=== PATIENT | male | born 1940 | race Caucasian/White ===

== ENCOUNTER 2016-11-01 12:07 | Outpatient (CLI) | payer MEDICARE, OTHER | END 2016-11-01 12:08 | disposition critical access hospital (66) | DX: R25.2 Cramp and spasm (principal); R25.1 Tremor, unspecified | CPT/HCPCS: A0425; A0429 ==

== ENCOUNTER 2016-11-01 12:20 | Inpatient (IN) | payer MEDICARE, OTHER ==
[2016-11-01] MEDS ORDERED: SODIUM CHLORIDE 0.9% 1,000 ML IV ONE ×2 (12:27)
--- NOTE | 2016-11-01 12:32 | ED Physician Documentation ---
History of Present Illness - Stated complaint Stated Complaint: LEG CRAMPING - Chief complaint Chief Complaint: Neuro - History obtained from History obtained from: Patient, EMS - History of Present Illness Timing: Today Pain level max: 8 Pain level now: 0 Improved by: time Worsened by: nothing - Additonal information Additional information: Patient is a 76-year-old male who presents to the emergency department after developing a leg cramp that made him lie down on the ground earlier today and was unable to get up. No injury. Currently experiencing no pain. 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 Several lung tumors. He spends most of his time in [place], but lives here during the summer. Sees Dr. Al, oncology here. Denies any recent illnesses. Denies any fevers, vomiting, cough. States he is currently feeling well. arrived and states that she first noticed the tremor today. He is stepping off Keppra and didn't take his keppra this am. Review of Systems Constitutional: denies: Fever, Chills Ears: denies: Ear pain Nose: denies: Rhinorrhea / runny nose, Congestion Throat: denies: Sore throat Cardiac: denies: Chest pain / pressure Respiratory: denies: Cough GI: denies: Nausea, Vomiting, Diarrhea Skin: denies: Rash Musculoskeletal: denies: Neck pain, Back pain Neurologic: reports: Other (upper left extremity tremor for several weeks per pt.). denies: Focal weakness, Confused, Altered mental status, Headache PD PAST MEDICAL HISTORY - Past Medical History Cardiovascular: Hypertension, High cholesterol Respiratory: None Neuro: None Endocrine/Autoimmune: None GI: GERD : Benign prostate hypertrophy HEENT: None Psych: None Musculoskeletal: None Derm: None - Past Surgical History Past Surgical History: Yes General: EGD, Appendectomy, Colonoscopy HEENT: Tonsil/Adenoidectomy - Present Medications Home Medications: Ambulatory Orders Medication Instructions Recorded Confirmed Aspirin 81 mg PO QPM 11/02/12 11/01/16 Lisinopril/Hydrochlorothiazide 1 tab PO DAILY 11/02/12 11/01/16 [Lisinopril-Hctz 10-12.5 mg Tab] Omeprazole [PriLOSEC] 20 mg PO 1630 11/03/12 11/01/16 Amlodipine Besylate 5 mg PO DAILY 10/31/16 11/01/16 Atorvastatin [Lipitor] 10 mg PO QPM 10/31/16 11/01/16 Dexamethasone 2 mg PO Q48H 10/31/16 11/01/16 Levetiracetam [Levetiracetam] 500 mg PO BID 11/01/16 11/01/16 - Allergies Allergies/Adverse Reactions: Allergies Allergy/AdvReac Type Severity Reaction Status Date / Time No Known Drug Allergies Allergy Verified 11/02/12 21:05 - Social History Does the pt smoke?: No Smoking Status: Never smoker Does the pt drink ETOH?: Yes Does the pt have substance abuse?: No - Immunizations Immunizations are current?: Yes - POLST Patient has POLST: Yes POLST Status: Full Code PD ED PE NORMAL - Vitals Vital signs reviewed: Yes - General General: Alert and oriented X 3, No acute distress - HEENT HEENT: PERRL, Moist mucous membranes - Neck Neck: Supple, no meningeal sign - Cardiac Cardiac: RRR, Strong equal pulses - Respiratory Respiratory: No respiratory distress, Clear bilaterally - Abdomen Abdomen: Soft, Non tender - Back Back: No spinal TTP - Derm Derm: Warm and dry, No rash - Extremities Extremities: Other (LUE resting tremor) - Neuro Neuro: Alert and oriented X 3 - Psych Psych: Normal mood, Normal affect Results - Vitals Vitals: Vital Signs - 24 hr 11/01/16 11/01/16 11/01/16 12:28 13:15 14:29 Temperature 38.1 C H 37.0 C 37.5 C Heart Rate 107 H 78 Respiratory 21 20 Rate Blood Pressure 151/80 H 134/70 H O2 Saturation 98 93 11/01/16 11/01/16 11/01/16 14:32 15:00 15:30 Temperature Heart Rate 80 81 79 Respiratory 20 20 Rate Blood Pressure 137/65 H 147/72 H 145/78 H O2 Saturation 93 94 94 11/01/16 16:00 Temperature Heart Rate 88 Respiratory 22 Rate Blood Pressure 126/85 H O2 Saturation 90 L Oxygen O2 Source Room air - Labs Labs: Laboratory Tests 11/01/16 11/01/16 11/01/16 12:50 12:50 13:55 WBC 8.1 RBC 4.36 L Hgb 13.1 L Hct 38.5 L MCV 88.2 MCH 30.2 MCHC 34.2 RDW 15.2 H Plt Count 214 MPV 8.0 Neut # 6.2 Lymph # 1.1 L [place] # 0.8 Eos # 0.0 Baso # 0.1 Absolute Nucleated RBC 0.00 Nucleated RBCs 0.0 Manual Slide Review Indicated RBC Morph Micro Appear 2+ ANISOCYTOSIS Sodium 140 Potassium 4.0 Chloride 102 Carbon Dioxide 29 Anion Gap 9.0 BUN 34 H Creatinine 0.9 Estimated GFR (MDRD) 82 L Glucose 114 H Calcium 9.1 Phosphorus 2.6 Magnesium 1.6 L Total Bilirubin 0.5 AST 22 ALT 31 Alkaline Phosphatase 58 Total Protein 6.1 L Albumin 3.1 L Globulin 3.0 Albumin/Globulin Ratio 1.0 Lipase 35 Urine Color YELLOW Urine Clarity CLEAR Urine pH 7.5 Ur Specific [place] 1.015 Urine Protein NEGATIVE Urine Glucose (UA) NEGATIVE Urine Ketones NEGATIVE Urine Occult Blood NEGATIVE Urine Nitrite NEGATIVE Urine Bilirubin NEGATIVE Urine Urobilinogen 0.2 (NORMAL) Ur Leukocyte Esterase NEGATIVE Ur Microscopic Review NOT INDICATED Urine Culture Comments NOT INDICATED - Rads (name of study) head CT Radiology: Prelim report reviewed, EMP read contemporaneously, See rad report ( Right parietal lobe lesion, adjacent to a craniotomy jazzmine hole. This likely corresponds to the brain metastasis reported in clinical history. However, this lesion would be best characterized using comparison to previous head CT or brain MRI. Further workup would include comparison and may include contrast enhanced CT or MRI to characterize further. ) cxr Radiology: Prelim report reviewed, EMP read contemporaneously, See rad report ( Multiple bilateral pulmonary nodules which given the history of malignancy are consistent with pulmonary metastases. Comparison with previous imaging of the chest would be useful to evaluate the chronicity of these findings. ) PD MEDICAL DECISION MAKING - ED course Complexity details: reviewed results, re-evaluated patient, considered differential, d/w patient, d/w family, d/w healthcare network pricing consultant ED course: 1500 - Call placed to Dr. Lombardi (oncology). 1610 - Dr. Kowalski - Recommend start on dexamethasone, 8 mg twice daily. Also recommends placing observation for an MRI. Recommends restarting the Keppra 250 mg p.o. daily. Patient is well-appearing, nontoxic. He is having intermittent tremors to the bilateral lower extremities, worse on the left as well as left arm. Does have intermittent confusion. Possible partial complex seizures? No generalized tonic-clonic seizures. We will restart him on dexamethasone. Loaded with IV Keppra. Will get an MRI in the morning. Did initially have an elevated temperature here, and they remaining temperatures in the emergency department were normal and a normal white blood cell count. No neck stiffness or pain. No headache. Will hold LP at this time after discussion with oncology and hospitalist. Departure - Departure Disposition: 66 [facility] DC/Xfer Clinical Impression: Coarse tremors, Brain metastases Altered mental status Qualifiers: Altered mental status type: unspecified Qualified Code(s): R41.82 - Altered mental status, unspecified Condition: Stable Discharge Date/Time: 11/01/16 17:25
[2016-11-01 13:00] LABS: BASOPHILS # (AUTO) 0.1 10^3/uL (0.0-0.1); BASOPHILS % (AUTO) 0.6 %; EOSINOPHILS % (AUTO) 0.1 %; HCT - HEMATOCRIT 38.5 % (42.0-52.0); HGB - HEMOGLOBIN 13.1 g/dL (14.0-18.0); LYMPHOCYTES # (AUTO) 1.1 10^3/uL (1.5-3.5); LYMPHOCYTES % (AUTO) 13.1 %; MEAN CORPUSCULAR HEMOGLOBIN 30.2 pg (27.0-31.0); MEAN CORPUSCULAR HGB CONC 34.2 g/dL (32.0-36.0); MEAN CORPUSCULAR VOLUME 88.2 fL (80.0-94.0); MONOCYTES # (AUTO) 0.8 10^3/uL (0.0-1.0); MONOCYTES % (AUTO) 9.4 %; NEUTROPHILS # (AUTO) 6.2 10^3/uL (1.5-6.6); NEUTROPHILS % (AUTO) 76.8 %; RED BLOOD COUNT 4.36 10^6/uL (4.70-6.10); RED CELL DISTRIBUTION WIDTH 15.2 % (12.0-15.0); UNCORRECTED WHITE BLOOD COUNT 8.1 x10^3/uL; WHITE BLOOD COUNT 8.1 x10^3/uL (4.8-10.8)
[2016-11-01 13:25] LABS: BILIRUBIN,TOTAL 0.5 mg/dL (0.2-1.0); CALCIUM 9.1 mg/dL (8.5-10.3); CREATININE 0.9 mg/dL (0.6-1.2); MAGNESIUM 1.6 mg/dL (1.7-2.8); PHOSPHORUS 2.6 mg/dL (2.5-4.6); TOTAL PROTEIN 6.1 g/dL (6.7-8.2)
[2016-11-01] MEDS ORDERED: LIDOCAINE 2% URO-JET 5 ML SYRINGE UR ONE (13:38)
[2016-11-01 14:13] LABS: BILIRUBIN,URINE NEGATIVE (NEGATIVE); PH,URINE 7.5 PH (5.0-7.5); UA CHARGE (STRIP ONLY) YES; UR CULTURE IF IND NOT INDICATED
--- NOTE | 2016-11-01 14:43 | CT Preliminary Report ---
Exam: CT Head W/O IMPRESSION: 1. Right parietal lobe lesion, adjacent to a craniotomy jazzmine hole. This likely corresponds to the bra in metastasis reported in clinical history. However, this lesion would be best characterized using co mparison to previous head CT or brain MRI. Further workup would include comparison and may include co ntrast enhanced CT or MRI to characterize further. [facility] SITE ID: [id number]
--- NOTE | 2016-11-01 14:46 | CT Report ---
EXAM: CT HEAD EXAM DATE: 11/01/2016 02:19 PM. CLINICAL HISTORY: Fever, ALOC, h/o brain mets. COMPARISON: None. TECHNIQUE: Multiaxial CT images were obtained from the foramen magnum to the vertex. IV contrast: Non e. Reformats: Coronal. In accordance with CT protocol optimization, one or more of the following dose reduction techniques w ere utilized for this exam: automated exposure control, adjustment of mA and/or KV based on patient s ize, or use of iterative reconstructive technique. FINDINGS: Parenchyma: There is a heterogeneous lesion in the right parietal lobe. The lesion is predominantly h ypodense. Medially and anteriorly, there is a rim of hyperdensity. This lesion measures 3.4 x 3.2 x 4 .1 cm in size. There is a separate area of hyperdensity located laterally. This lesion is adjacent to a craniotomy defect in the lateral right calvarium. Given the presence of high attenuation, an area of gyriform hemorrhage is not excluded, more likely representing tumor calcification or other high de nsity tumor. No midline shift. Basal cisterns are patent. Extraaxial Spaces: No abnormal subdural or epidural fluid collections. Ventricles: Normal in size and position. Sinuses: Imaged paranasal sinuses, orbits, and mastoids show no significant abnormality. Bones: No evidence of fracture or calvarial defect. Other: None. IMPRESSION: 1. Right parietal lobe lesion, adjacent to a craniotomy jazzmine hole. This likely corresponds to the bra in metastasis reported in clinical history. However, this lesion would be best characterized using co mparison to previous head CT or brain MRI. Further workup would include comparison and may include co ntrast enhanced CT or MRI to characterize further. [facility] Referring Provider Line: [phone] SITE ID: [id number]
--- NOTE | 2016-11-01 15:05 | XRAY Preliminary Report ---
Exam: XR Chest 1 View IMPRESSION: 1. Multiple bilateral pulmonary nodules which given the history of malignancy are consistent with pul monary metastases. Comparison with previous imaging of the chest would be useful to evaluate the costume cutter nicity of these findings. [facility] SITE ID: [id number]
--- NOTE | 2016-11-01 15:07 | XRAY Report ---
EXAM: CHEST RADIOGRAPHY EXAM DATE: 11/01/2016 02:23 PM. CLINICAL HISTORY: Fever, ALOC. History of metastatic disease. COMPARISON: None. TECHNIQUE: 1 view. FINDINGS: Lungs/Pleura: There are multiple bilateral pulmonary nodules. Nodule at the right lung base measures 2.5 cm in diameter. There are bilateral nodules most likely metastatic disease. Mediastinum: Heart size within normal limits. Trachea is midline. Other: None. IMPRESSION: 1. Multiple bilateral pulmonary nodules which given the history of malignancy are consistent with pul monary metastases. Comparison with previous imaging of the chest would be useful to evaluate the field liability generalist nicity of these findings. [facility] Referring Provider Line: [phone] SITE ID: [id number]
[2016-11-01] MEDS ORDERED: levETIRAcetam 250 MG TABLET ONE (16:04)
[2016-11-01] MEDS ORDERED: DEXAMETHASONE 10 MG/ML VIAL IVP STA (16:10)
[2016-11-01] MEDS ORDERED: levETIRAcetam 250 MG TABLET PO STA (16:11)
[2016-11-01] MEDS ORDERED: levETIRAcetam INJ 1,000 MG in SODIUM CHLORIDE 0.9% 100ML 100 ML IV STA (16:32)
[2016-11-01] MEDS ORDERED: DEXAMETHASONE 10 MG/ML VIAL ONE (16:39)
[2016-11-01] MEDS ORDERED: ACETAMINOPHEN 325 MG TABLET PO PRN (16:43)
[2016-11-01] MEDS ORDERED: HYDROcod/ACETAM 5/325 MG TABLET PO PRN (16:43)
[2016-11-01] MEDS ORDERED: SODIUM CHLORIDE FLUSH 0.9% 10 ML SYRINGE IVP PRN (16:43)
[2016-11-01] MEDS: PANTOPRAZOLE 40 MG TABLET PO SCH (17:53)
--- NOTE | 2016-11-01 18:46 | HISTORY & PHYSICAL EXAMINATION ---
DATE OF ADMISSION: 11/01/2016 PRIMARY CARE PROVIDER: Mikie Cheung MD. CHIEF COMPLAINT: Leg cramping and spasms. IDENTIFYING INFORMATION: The patient is the primary source of history. The patient does have his brot her, Bill, [id number] Alexandro, and his present. The patient appears cogent although sometimes appears to answer questions with answers which are tangential to the question. Unclear if he does not hear the questions or if an intermittent cognitive deficit. The patient's history is augmented by th e patient's and the personal record review, as well as the data collected during this visit. In addition, the patient's examination is used in evaluation of this person and preparation of this docu ment. HISTORY OF PRESENT ILLNESS: The patient woke up this morning, was having tremors in his left leg whic h was unusual. He does have some in his left arm and he had some more shaking of his body and a tremo r in his voice. The patient said that this has increased over the last week. The patient does have metastatic melanoma both to the lung and brain. He has been having chemotherapy and is to have a new chemotherapy agent. The patient had a biopsy of the brain to have an accurate d iagnosis. He was therefore put on antiseizure medicine, Keppra, back in August and has been on it sinc e then. He has been tapered off recently from 3 pills a day to 2 pills a day to 1 pill a day to half a pill a day and then today was his first day not taking any pill at all, and he was to be on every o ther day. The reason for taking him off the medication was because he was going to be on a new medica tion for the cancer called KEYTRUDA. In fact, he was supposed to take this medication tomorrow, have the first infusion tomorrow. REVIEW OF SYSTEMS: He denies any fever, chills, sweats. He has had no hallucinations. No change in vi mandy or hearing. No changes in taste or smell. The patient had no cough, shortness of breath, wheezin g. No chest pain. The patient has nocturia x1, but no frequency or urgency. The patient's bowels have been normal for him. The rest of the complete review of systems is negative as queried. PAST MEDICAL HISTORY: Remarkable for hypertension, hyperlipidemia, BPH, GERD. Also, the malignant abdifatah anoma. PAST SURGERIES: He has had EGD, appendectomy, colonoscopy, and tonsils and adenoids. ALLERGIES: NONE KNOWN. MEDICATIONS: 1. Aspirin 81 mg a day. 2. Lisinopril. 3. Hydrochlorothiazide 5 mg a day. 4. Omeprazole 20 mg a day. 5. Amlodipine 5 mg a day. 6. Lipitor 10 mg a day. 7. Dexamethasone 4 mg a day. 8. Keppra 500 mg twice a day. PERSONAL AND SOCIAL HISTORY: The patient was born in [place], raised there, and then went to [employer] for college [place]. The patient has been retired since and he mares now in [place] and spends the summer in [facility]. He has been back for a bout 2 weeks. FAMILY HISTORY: Positive for diabetes, heart failure. There has also been cancer of lung, cancer of t he breast in the family. PHYSICAL EXAMINATION: Partially covered in a blanket with a corona. VITAL SIGNS: Temperature is 38.1, heart rate 107, respiratory rate 21, blood pressure 151/100, O2 sat uration is 98, repeat temperature is 37.0, repeat temperature after that 37.5, heart rate 78, respira tory rate is 20, heart rate 80, blood pressure 137/65, O2 saturation is 93% on room air. EYES: EOMs within normal limits, PERRL, nonicteric. MOUTH AND THROAT: Somewhat dry mucous membranes. NECK: Supple. Nontender. No lymphadenopathy. CHEST: Normal sinus rhythm without murmur. LUNGS: Clear, good air movement bilaterally. ABDOMEN: Soft, nontender, normal bowel sounds. No hepatosplenomegaly. CHEST WALL: Nontender. Symmetric. GENITAL/RECTAL: Exam was not done. EXTREMITIES: He has 1+ pulses in both posterior tibial arteries. NEUROLOGIC: He has tremors that are intermittent of the left arm, trunk, left leg are more constant j erky, there is no Babinski either side. Cognitive appears mostly intact. SKIN: No suspicious lesions, dermatitis. LABORATORY: White 8.1, with 13 and 38 hemoglobin and hematocrit. The platelet count is 214. The jv ent's sodium 140, potassium 4.0, chloride 102, carbon dioxide 29. The patient's BUN 34, creatinine 0. 9, glucose 114, calcium is 9.1, phosphorus 2.6, magnesium 1.6 and normal liver enzymes, albumin is 3. 1. His has a urine which does not indicate infection. The patient's chest x-ray shows multiple pulmonary nodules consistent with pulmonary metastases. His head CT shows what looks like a brain metastases adjacent to a craniotomy jazzmine hole with the recommen dation for an MRI. SUMMARY: This is a 76-year-old male who presented to the emergency department after developing a leg cramp early in the morning, could not get up, and then he had increasing tremors of the trunk, left a rm and left leg. The patient has known brain metastases and lung tumors from melanoma. The patient ferris d recently been tapered off of Keppra. DIAGNOSES: 1. Seizures. 2. Fever of undetermined etiology. 3. Metastatic melanoma to lung and brain. 4. Hypertension. 5. Hyperlipidemia. 6. Gastroesophageal reflux disease. DISCUSSION/DECISION MAKIN. Seizures. The patient will be placed on Keppra, he already got an infusion and is to be on 500 twi ce a day. It is now apparent from research by pharmacy that he was tapering off Decadron, not taperin g off the Keppra. 2. Fever once of 38.1. He has had blood cultures drawn and the issue remains whether he is going to s tart antibiotics or not. 3. Metastatic melanoma to lung and brain and he is supposed to be starting a new counter-therapeutic regime which the effectiveness would be impaired if he was on the Decadron, so, therefore, the taperi ng of the Decadron. 4. Hypertension. He will have his medications restarted from home. 5. Hyperlipidemia which he will also be started on his atorvastatin. 6. Gastroesophageal reflux disease. He will be on a PPI substitute for the Prilosec. HOSPITAL ISSUES: 1. CODE STATUS: HE IS FULL CODE. 2. VENOUS THROMBOEMBOLISM: Lovenox. 3. DIET: Regular. 4. ACTIVITY: Assisted. 5. LINES: He will just have a peripheral IV presently. 6. Hospital status: In view of the nature of his complex disease with the need for further diagnostic studies as well as interventions, he will need at least 2 nights in the hospital to assure he is imp roved enough for a safe discharge. 7. Estimated length of stay is 2 nights. 8. Disposition: Which is expected to be home. JOB #: [id number] EXT JOB #:[id number]
[2016-11-01] MEDS: SODIUM CHLORIDE 0.9% 1,000 ML IV SCH ×2 (18:50→22:58)
[2016-11-01] MEDS: SODIUM CHLORIDE FLUSH 0.9% 10 ML SYRINGE IVP SCH (21:11)
[2016-11-01] MEDS: ATORVASTATIN 10 MG TABLET PO SCH (21:15)
[2016-11-02 06:10] LABS: ALBUMIN/GLOBULIN RATIO 0.9 (1.0-2.2); BILIRUBIN,TOTAL 0.7 mg/dL (0.2-1.0); CALCIUM 8.3 mg/dL (8.5-10.3); CREATININE 0.8 mg/dL (0.6-1.2); MAGNESIUM 1.7 mg/dL (1.7-2.8); POTASSIUM 4.1 mmol/L (3.5-5.0); TOTAL PROTEIN 5.4 g/dL (6.7-8.2)
[2016-11-02] MEDS: SODIUM CHLORIDE FLUSH 0.9% 10 ML SYRINGE IVP SCH ×3 (06:54→21:31)
[2016-11-02 07:56] LABS: HEMOGLOBIN A1C 0.62 g/dL
[2016-11-02] MEDS: LISINOPRIL 5 MG TABLET PO SCH (08:31)
[2016-11-02] MEDS: levETIRAcetam 250 MG TABLET PO SCH ×2 (08:31→21:30)
[2016-11-02] MEDS: hydroCHLOROthiazide 12.5 MG CAPSULE PO SCH (08:32)
[2016-11-02] MEDS: amLODIPine 5 MG TABLET PO SCH (08:32)
[2016-11-02] MEDS: DEXAMETHASONE 4 MG TABLET PO SCH ×2 (08:32→17:06)
[2016-11-02] MEDS: ENOXAPARIN 40 MG/0.4 ML SYRINGE SUBQ SCH (08:33)
[2016-11-02] MEDS: POLYETHYLENE GLYCOL 3350 17 GM PACKET PO SCH (08:39)
[2016-11-02] MEDS ORDERED: GADOBUTROL 7.5 MMOL/7.5 ML VIAL IVP ONE (10:50)
[2016-11-02] MEDS: SODIUM CHLORIDE 0.9% 1,000 ML IV SCH ×2 (11:29→22:28)
--- NOTE | 2016-11-02 12:17 | MRI Preliminary Report ---
Exam: MRI Brain W/WO IMPRESSION: 1. A posterior right parietal cystic focus measuring 3.3 x 1.9 x 2.6 cm (transverse by craniocaudal) (series 1102 image 79, series 1103 image 96), however the signal is not that of simple fluid. Given h istory of brain metastases, this may represent a cystic component of a brain metastasis, possibly wit h prior partial resection. Medial to the cystic focus there is an area of intrinsic T1 hyperintensity measuring 2.8 x 1.6 x 3.0 cm (transverse by craniocaudal) (series 1102 image 78, series 1103 image 9 4). Accounting for the intrinsic T1 hyperintensity, no definite enhancement. The intrinsic T1 hyperin tensity, which demonstrates susceptibility artifact on the GRE sequence, may represent evolving blood products from prior surgery/biopsy. Alternatively, this may represent a partially hemorrhagic, nonen hancing solid mass associated with the cystic component. Recommend clinical correlation with prior im aging and surgical history. 2. A second focus of intrinsic T1 hyperintensity with no definite enhancement slightly more laterally within the right parietal lobe, associated with the right jazzmine hole craniotomy measuring 12 x 11 x 1 3 mm (transverse by craniocaudal) (series 1102 image 78, series 1103 image 86). Similarly for this le mandy, the intrinsic T1 hyperintensity, which demonstrates susceptibility artifact on GRE sequence, ma y represent evolving blood products from prior surgery/biopsy versus a hemorrhagic, nonenhancing kanu d tumor. Recommend clinical correlation with prior imaging and surgical history. 3. Moderate T2/FLAIR hyperintense signal in the mallet within the right parietal lobe, likely represe nting vasogenic edema. 4. No definite abnormal intracranial enhancement. 5. No evidence of acute or subacute infarct. 6. Scattered T2/FLAIR hyperintense periventricular and deep white matter lesions are seen, these like ly represent sequela of chronic microangiopathy. 7. The hippocampi are symmetric and qualitatively normal in size and signal. [facility] SITE ID: [id number]
--- NOTE | 2016-11-02 12:20 | MRI Report ---
EXAM: MRI BRAIN WITHOUT AND WITH CONTRAST EXAM DATE: 11/02/2016 11:21 AM. CLINICAL HISTORY: Seizures. History of brain metastases COMPARISON: CT head 11/01/2016 TECHNIQUE: Multiplanar, multisequence T1-weighted and fluid-sensitive MR sequences of the brain were performed. Sequences optimized for routine evaluation. Other: None. Without and with IV Contrast: Yes . 7.5 mL Gadavist FINDINGS: Brain Volume: Normal for age. Parenchyma/Dura: There is a posterior right parietal cystic focus measuring 3.3 x 1.9 x 2.6 cm (trans verse by craniocaudal) (series 1102 image 79, series 1103 image 96), however the signal is not that o f simple fluid. Given history of brain metastases, this may represent a cystic component of a brain m etastasis, possibly with prior partial resection. Medial to the cystic focus there is an area of intr insic T1 hyperintensity measuring 2.8 x 1.6 x 3.0 cm (transverse by craniocaudal) (series 1102 image 78, series 1103 image 94). Accounting for the intrinsic T1 hyperintensity, no definite enhancement is seen. The intrinsic T1 hyperintensity, which demonstrates susceptibility artifact on the GRE sequenc e, may represent evolving blood products from prior surgery/biopsy. Alternatively, this may represent a partially hemorrhagic, nonenhancing solid component associated with the cystic component. Recommen d clinical correlation with prior imaging and surgical history. There is a second focus of intrinsic T1 hyperintensity with no definite enhancement slightly more lat erally within the right parietal lobe, associated with the right jazzmine hole craniotomy measuring 12 x 11 x 13 mm (transverse by craniocaudal) (series 1102 image 78, series 1103 image 86). Similarly for t his lesion, the intrinsic T1 hyperintensity, which demonstrates susceptibility artifact on GRE sequen ce, may represent evolving blood products from prior surgery/biopsy. Alternatively, this may represen t a hemorrhagic, nonenhancing solid tumor. Recommend clinical correlation with prior imaging and surg ical history. There is moderate T2/FLAIR hyperintense signal in the mallet within the right parietal lobe, likely r epresenting vasogenic edema. No definite abnormal intracranial enhancement. No evidence of acute or subacute infarct. Scattered T2 /FLAIR hyperintense periventricular and deep white matter lesions are seen, these likely represent se quela of chronic microangiopathy. The hippocampi are symmetric and qualitatively normal in size and signal. Ventricles/Cisterns: Normal. No hydrocephalus. Sinuses: Normal. No sinusitis evident. Bones: Status post right frontal jazzmine hole craniotomy. Other: Status post bilateral lens replacement surgery. The visualized orbits are otherwise unremarkab le. IMPRESSION: 1. A posterior right parietal cystic focus measuring 3.3 x 1.9 x 2.6 cm (transverse by craniocaudal) (series 1102 image 79, series 1103 image 96), however the signal is not that of simple fluid. Given h istory of brain metastases, this may represent a cystic component of a brain metastasis, possibly wit h prior partial resection. Medial to the cystic focus there is an area of intrinsic T1 hyperintensity measuring 2.8 x 1.6 x 3.0 cm (transverse by craniocaudal) (series 1102 image 78, series 1103 image 9 4). Accounting for the intrinsic T1 hyperintensity, no definite enhancement. The intrinsic T1 hyperin tensity, which demonstrates susceptibility artifact on the GRE sequence, may represent evolving blood products from prior surgery/biopsy. Alternatively, this may represent a partially hemorrhagic, nonen hancing solid mass associated with the cystic component. Recommend clinical correlation with prior im aging and surgical history. 2. A second focus of intrinsic T1 hyperintensity with no definite enhancement slightly more laterally within the right parietal lobe, associated with the right jazzmine hole craniotomy measuring 12 x 11 x 1 3 mm (transverse by craniocaudal) (series 1102 image 78, series 1103 image 86). Similarly for this le mandy, the intrinsic T1 hyperintensity, which demonstrates susceptibility artifact on GRE sequence, ma y represent evolving blood products from prior surgery/biopsy versus a hemorrhagic, nonenhancing kanu d tumor. Recommend clinical correlation with prior imaging and surgical history. 3. Moderate T2/FLAIR hyperintense signal in the mallet within the right parietal lobe, likely represe nting vasogenic edema. 4. No definite abnormal intracranial enhancement. 5. No evidence of acute or subacute infarct. 6. Scattered T2/FLAIR hyperintense periventricular and deep white matter lesions are seen, these like ly represent sequela of chronic microangiopathy. 7. The hippocampi are symmetric and qualitatively normal in size and signal. [facility] Referring Provider Line: [phone] SITE ID: [id number]
[2016-11-02] MEDS: BACLOFEN 10 MG TABLET PO SCH ×2 (17:03→21:30)
[2016-11-02] MEDS: PANTOPRAZOLE 40 MG TABLET PO SCH (17:06)
[2016-11-02] MEDS: ATORVASTATIN 10 MG TABLET PO SCH (21:30)
[2016-11-03] MEDS ORDERED: LORazepam 0.5 MG TABLET PO PRN ×2 (02:12→19:24)
[2016-11-03 05:46] LABS: BASOPHILS % (AUTO) 0.1 %; EOSINOPHILS % (AUTO) 0.1 %; HCT - HEMATOCRIT 34.5 % (42.0-52.0); HGB - HEMOGLOBIN 11.5 g/dL (14.0-18.0); LYMPHOCYTES % (AUTO) 5.7 %; MEAN CORPUSCULAR HEMOGLOBIN 29.8 pg (27.0-31.0); MEAN CORPUSCULAR HGB CONC 33.5 g/dL (32.0-36.0); MEAN CORPUSCULAR VOLUME 89.1 fL (80.0-94.0); MEAN PLATELET VOLUME 8.2 fL (7.4-11.4); MONOCYTES % (AUTO) 5.4 %; NEUTROPHILS % (AUTO) 88.7 %; RED BLOOD COUNT 3.87 10^6/uL (4.70-6.10); RED CELL DISTRIBUTION WIDTH 14.7 % (12.0-15.0); UNCORRECTED WHITE BLOOD COUNT 11.2 x10^3/uL; WHITE BLOOD COUNT 11.2 x10^3/uL (4.8-10.8)
[2016-11-03 06:05] LABS: BILIRUBIN,TOTAL 0.3 mg/dL (0.2-1.0); CALCIUM 8.2 mg/dL (8.5-10.3); CREATININE 0.6 mg/dL (0.6-1.2); MAGNESIUM 1.6 mg/dL (1.7-2.8); POTASSIUM 3.5 mmol/L (3.5-5.0); TOTAL PROTEIN 4.6 g/dL (6.7-8.2)
[2016-11-03 06:18] LABS: BAND NEUTROPHILS % (MANUAL) 8 %; LYMPHOCYTES % (MANUAL) 6 %; NEUTROPHILS % (MANUAL) 80 %; NP AUTO DIFFERENTIAL? YES; NP MAN DIFFERENTIAL? NO; PLATELET ESTIMATE, MANUAL NORMAL (130-450,000) (NORMAL); TOTAL CELLS COUNTED 100
[2016-11-03] MEDS: SODIUM CHLORIDE FLUSH 0.9% 10 ML SYRINGE IVP SCH ×3 (06:22→21:07)
[2016-11-03] MEDS: BACLOFEN 10 MG TABLET PO SCH (06:23)
[2016-11-03] MEDS: POLYETHYLENE GLYCOL 3350 17 GM PACKET PO SCH (09:01)
[2016-11-03] MEDS: DEXAMETHASONE 4 MG TABLET PO SCH ×2 (09:02→16:58)
[2016-11-03] MEDS: amLODIPine 5 MG TABLET PO SCH (09:02)
[2016-11-03] MEDS: hydroCHLOROthiazide 12.5 MG CAPSULE PO SCH (09:02)
[2016-11-03] MEDS: levETIRAcetam 250 MG TABLET PO SCH ×2 (09:02→21:06)
[2016-11-03] MEDS: ENOXAPARIN 40 MG/0.4 ML SYRINGE SUBQ SCH (09:02)
[2016-11-03] MEDS: SODIUM CHLORIDE 0.9% 1,000 ML IV SCH ×2 (09:11→18:47)
[2016-11-03] MEDS: LISINOPRIL 5 MG TABLET PO SCH (10:03)
[2016-11-03] MEDS: LORazepam 0.5 MG TABLET PO PRN ×2 (12:09→21:06)
[2016-11-03] MEDS: PANTOPRAZOLE 40 MG TABLET PO SCH (16:57)
[2016-11-03] MEDS: ATORVASTATIN 10 MG TABLET PO SCH (21:06)
[2016-11-04] MEDS: SODIUM CHLORIDE FLUSH 0.9% 10 ML SYRINGE IVP SCH (05:59)
[2016-11-04 06:26] LABS: HGB - HEMOGLOBIN 12.9 g/dL (14.0-18.0)
[2016-11-04 06:32] LABS: BASOPHILS % (AUTO) 0.2 %; HCT - HEMATOCRIT 38.7 % (42.0-52.0); LYMPHOCYTES % (AUTO) 6.2 %; MEAN CORPUSCULAR HEMOGLOBIN 29.7 pg (27.0-31.0); MEAN CORPUSCULAR HGB CONC 33.4 g/dL (32.0-36.0); MEAN PLATELET VOLUME 8.3 fL (7.4-11.4); MONOCYTES % (AUTO) 3.7 %; NEUTROPHILS % (AUTO) 89.9 %; RED BLOOD COUNT 4.35 10^6/uL (4.70-6.10); RED CELL DISTRIBUTION WIDTH 14.4 % (12.0-15.0); UNCORRECTED WHITE BLOOD COUNT 16.9 x10^3/uL; WHITE BLOOD COUNT 16.9 x10^3/uL (4.8-10.8)
[2016-11-04 06:52] LABS: BAND NEUTROPHILS % (MANUAL) 5 %; LYMPHOCYTES % (MANUAL) 5 %; NEUTROPHILS % (MANUAL) 83 %; NP AUTO DIFFERENTIAL? YES; NP MAN DIFFERENTIAL? NO; PLATELET ESTIMATE, MANUAL NORMAL (130-450,000) (NORMAL); TOTAL CELLS COUNTED 100
[2016-11-04] MEDS: ENOXAPARIN 40 MG/0.4 ML SYRINGE SUBQ SCH (10:18)
[2016-11-04] MEDS: LISINOPRIL 5 MG TABLET PO SCH (10:18)
[2016-11-04] MEDS: amLODIPine 5 MG TABLET PO SCH (10:18)
[2016-11-04] MEDS: hydroCHLOROthiazide 12.5 MG CAPSULE PO SCH (10:19)
[2016-11-04] MEDS: levETIRAcetam 250 MG TABLET PO SCH (10:19)
[2016-11-04] MEDS: DEXAMETHASONE 4 MG TABLET PO SCH (10:20)
[2016-11-04] MEDS: POLYETHYLENE GLYCOL 3350 17 GM PACKET PO SCH (10:20)
--- NOTE | 2016-11-04 10:20 | PROVIDER PROGRESS NOTE ---
Subjective - Prog Note Date Prog Note Date: 11/03/16 Prog Note Time: 14:00 - Subjective Pt reports feeling: Improved Objective - Vital Signs/Intake & Output Vital Signs: Vital Signs x48h Temp Pulse Resp BP Pulse Ox 11/04/16 08:16 37.0 C 54 L 12 144/78 H 97 11/04/16 06:00 36.5 C 56 L 16 157/75 H 95 11/04/16 04:57 16 11/04/16 04:15 16 11/04/16 02:55 18 Intake & Output: Intake & Output 11/01/16 11/02/16 11/03/16 11/04/16 23:59 23:59 23:59 23:59 Intake Total 725 3231 3855 880 Output Total 975 2100 1750 350 Balance -250 1131 2105 530 - Objective General Appearance: positive: No acute distress, Alert Eyes Bilateral: positive: Normal inspection, PERRL, EOMI ENT: positive: ENT inspection nml, Pharynx nml, No signs of dehydration Neck: positive: Nml inspection, Thyroid nml, No JVD Respiratory: positive: No respiratory distress, Breath sounds nml Cardiovascular: positive: Regular rate & rhythm, No murmur Abdomen: positive: Non-tender, Nml bowel sounds, No distention Skin: positive: Color nml, Warm, Dry Neurologic/Psychiatric: positive: CN's nml (2-12), Motor nml, Other (has some tremors. mostly L side much better this afternoon.) - Lab Results Fish Bones: 11/04/16 06:18 11/03/16 05:25 Other Labs: Lab Results x24hrs 11/04/16 Range/Units 06:18 WBC 16.9 H (4.8-10.8) x10^3/uL RBC 4.35 L (4.70-6.10) 10^6/uL Hgb 12.9 L (14.0-18.0) g/dL Hct 38.7 L (42.0-52.0) % MCV 89.0 (80.0-94.0) fL MCH 29.7 (27.0-31.0) pg MCHC 33.4 (32.0-36.0) g/dL RDW 14.4 (12.0-15.0) % Plt Count 269 (130-450) 10^3/uL MPV 8.3 (7.4-11.4) fL Neut # Not Reportable Lymph # Not Reportable [place] # Not Reportable Eos # Not Reportable Baso # Not Reportable Absolute Nucleated RBC Not Reportable Total Counted 100 Band Neuts % (Manual) 5 (0 - 10) % Metamyelocytes % 2 H ( - 0) % Myelocytes % 2 H ( - 0) % Neutrophils # (Manual) 14.9 H (1.5-6.6) 10^3/uL Lymphocytes # (Manual) 0.8 L (1.5-3.5) 10^3/uL Monocytes # (Manual) 0.5 (0.0-1.0) 10^3/uL Nucleated RBCs Not Reportable Differential Comment MANUAL DIFFERENTIAL Platelet Estimate NORMAL (130-450,000) (NORMAL) RBC Morph Micro Appear NORMAL APPEARANCE (NORMAL) Assessment/Plan - Problem List (1) Altered mental status Impression: this has improved some. He seems to wax and wan. Some comments are out of context or irrelevant. Qualifiers: Altered mental status type: unspecified Qualified Code(s): R41.82 - Altered mental status, unspecified (2) Brain metastases Impression: His MR show a larger 2 mets from 2 -17 to now he also has more edema as well. (3) Coarse tremors Impression: His tremors are not seizures. He is better after the ativan. The baclofen did not work.
--- NOTE | 2016-11-04 10:32 | Discharge Plan ---
Discharge Plan Disposition: 01 Home, Self Care Condition: Good Prescriptions: Dexamethasone 4 mg PO BID #30 tablet Diet: Regular Activity Restrictions: Activity as Tolerated Shower Restrictions: No Driving Restrictions: Yes (no driving) Weight Bearing: Full Weight No Smoking: If you smoke, Please STOP! Call for help. Follow-up with: Mikie Cheung MD [Primary Care Provider] - 1 Week
[2016-11-04 11:38] VITALS: BP 139/83
--- NOTE | 2016-11-04 16:33 | PROVIDER PROGRESS NOTE ---
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 but that is not new.) Objective - Vital Signs/Intake & Output Reviewed Vital Signs: Yes Vital Signs: Vital Signs x48h Temp Pulse Resp BP Pulse Ox 11/04/16 11:36 36.5 C 63 20 139/83 H 95 Intake & Output: Intake & Output 11/01/16 11/02/16 11/03/16 11/04/16 23:59 23:59 23:59 23:59 Intake Total 725 3231 3855 880 Output Total 975 2100 1750 350 Balance -250 1131 2105 530 - Objective General Appearance: positive: Alert, Mild distress Eyes Bilateral: positive: Normal inspection, PERRL, EOMI ENT: positive: ENT inspection nml, Pharynx nml Neck: positive: Thyroid nml, No JVD, Trachea midline Cardiovascular: positive: Regular rate & rhythm, No murmur Abdomen: positive: Non-tender, No organomegaly Extremities: positive: Non-tender, Full ROM Neurologic/Psychiatric: positive: Oriented x3, Motor nml, Sensation nml - Lab Results Fish Bones: 11/04/16 06:18 11/03/16 05:25 Other Labs: Lab Results x24hrs 11/04/16 Range/Units 06:18 WBC 16.9 H (4.8-10.8) x10^3/uL RBC 4.35 L (4.70-6.10) 10^6/uL Hgb 12.9 L (14.0-18.0) g/dL Hct 38.7 L (42.0-52.0) % MCV 89.0 (80.0-94.0) fL MCH 29.7 (27.0-31.0) pg MCHC 33.4 (32.0-36.0) g/dL RDW 14.4 (12.0-15.0) % Plt Count 269 (130-450) 10^3/uL MPV 8.3 (7.4-11.4) fL Neut # Not Reportable Lymph # Not Reportable [place] # Not Reportable Eos # Not Reportable Baso # Not Reportable Absolute Nucleated RBC Not Reportable Total Counted 100 Band Neuts % (Manual) 5 (0 - 10) % Metamyelocytes % 2 H ( - 0) % Myelocytes % 2 H ( - 0) % Neutrophils # (Manual) 14.9 H (1.5-6.6) 10^3/uL Lymphocytes # (Manual) 0.8 L (1.5-3.5) 10^3/uL Monocytes # (Manual) 0.5 (0.0-1.0) 10^3/uL Nucleated RBCs Not Reportable Differential Comment MANUAL DIFFERENTIAL Platelet Estimate NORMAL (130-450,000) (NORMAL) RBC Morph Micro Appear NORMAL APPEARANCE (NORMAL) Assessment/Plan - Problem List (1) Altered mental status Impression: he is improved but still a lot of tangential thoughts. Qualifiers: Altered mental status type: unspecified Qualified Code(s): R41.82 - Altered mental status, unspecified (2) Brain metastases Impression: tremors persist but not as severe. (3) Coarse tremors Impression: see above.
--- NOTE | 2016-11-04 19:47 | DISCHARGE SUMMARY ---
DATE OF ADMISSION: 11/01/2016 DATE OF DISCHARGE: 11/04/2016 PRIMARY CARE PHYSICIAN: Mikie Cheung MD ONCOLOGIST: Addy Coronado MD ADMISSION DIAGNOSES 1. Seizures. 2. Fever, undetermined etiology. 3. 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 4. Hypertension. 5. Hyperlipidemia. 6. GERD (gastroesophageal reflux disease). DISCHARGE DIAGNOSES 1. Tremors, seizures ruled out. 2. Fever, undetermined etiology. No subsequent fever. 3. Metastatic bone to lung and brain. 4. Hypertension. 5. Hyperlipidemia. 6. Gastroesophageal reflux disease, quiescent. SPECIAL PROCEDURES: The patient had MRI and head CT. Head CT findings: 1. Right parietal lobe lesions adjacent to craniotomy bur hole. This likely corresponds to the brain metastases report in the clinical history. However, this patient would be best characterized using comparison to previous head CT or brain MRI. Further workup including comparison may include contrast-enhanced CT or MRI to characterize further brain MRI findings with an addendum which shows the patient has a metastatic melanoma consistent with an enhancing, intrinsically T1 hyperintense lesions seen on today's brain MRI as it is seen as intrinsically T1 hyperintense. There is one lesion that is solid/cystic in the posterior right parietal lobe, which overall measures 36 x 30 mm slightly more laterally in the right parietal lobe, solid T1 hyperintense lesion which measures 12 x 11 mm. Both have increased in size since the prior study . On prior study, the large lesion measured 22 x 18 mm. Smaller lesion 9 x 7 mm. Lastly, the parietal edema surrounding the lesions has increased compared to prior study of 08/17. However, the edema is still localized. The right parietal lobe did not result in midline shift or herniation. The initial presentation, emergency department evaluation, and hospital plans are well described in the history and physical, see copy of same. SUMMARY: This is a 76-year-old male presents to the emergency department after developing leg cramps in the unloader. He could not get up. Then he had increasing tremors of the trunk, left arm, and leg. The patient has known brain metastases and lung tumors and melanoma. The patient has recently been tapered off his Decadron. Initially, it was thought it was the Keppra later uncovered by the pharmacist in his medication reconciliation. The patient received Decadron 10 mg in the emergency department intravenously. The patient had some improvement in his symptoms overnight. The patient had an MRI the following day that showed the lesions as described in the reports. The patient had an MRI the following day. The patient was tried first on baclofen, later on Ativan because he could not sleep the following night and he was much improved. The Ativan was continued in half dose twice during the day and then full bolus at night. The patient is able to ambulate with minimal assistance by using a walker and he has a walker at home. PHYSICAL EXAMINATION VITAL SIGNS: On the day of discharge, temperature 36.5, 63, 139/83, 20, 95 room air saturation. EYES: EOM within normal limits; however, the patient has double vision, wears a patch. MOUTH AND THROAT: Moist mucous membranes. No other pathology noted. NECK: Supple. Nontender. No lymphadenopathy. CHEST WALL: Nontender. Symmetric. HEART: Sinus rhythm, no murmur, rubs, clicks. LUNGS: Clear, good air movement. ABDOMEN: Soft, nontender. No hepatosplenomegaly noted. VASCULAR: No cyanosis. Normal capillary refill. SKIN: No suspicious lesions presently on limited exam. Dermatitis. NEURO: On the day of discharge, he is able to hold both hands out without drift or tremors and same on the left leg one at a time. Has good strength as well. The patient's cognition at times impaired with some tangential or relevant information in relation to responses spontaneously. The patient is able to carry on a conversation. This is a change and family notes from his previous visit. The patient is discharged home. ALLERGIES: NO DRUG ALLERGIES. HOME MEDICATIONS 1. Omeprazole 20 mg a day. 2. Aspirin 81 mg a day. 3. Levetiracetam 500 mg p.o. twice a day. 4. Lipitor 10 mg a day. 5. Amlodipine 5 mg a day. 6. Lisinopril/hydrochlorothiazide 10/12.5 one tab 1 a day. 7. Dexamethasone return to 4 mg twice a day. He can have this reevaluated by Dr. Coronado when he sees him. The patient is to follow up with Dr. Cheung in the next week, Dr. Coronado in the next week. DISCHARGE ISSUES 1. The status of his malignant melanoma with metastases. 2. The status of his tremors. 3. Cognition. 4. Hypertension, controlled. Time spent in discharge activity, with counseling the patient and family, collaboration with case management, nursing, was 35 minutes. 16:9:00 JOB #: [id number] EXT JOB #:[id number] RAMY
== END 2016-11-04 13:00 | disposition home or self-care (01) | DRG 92 ==
LOC: EDUNIT# → ED 12:20 → MS 16:43
PROVIDERS: ADMIT Internal Medicine; ATTEND Internal Medicine
DX: R25.1 Tremor, unspecified (principal); C79.31 Secondary malignant neoplasm of brain; C78.01 Secondary malignant neoplasm of right lung; R41.82 Altered mental status, unspecified; C78.02 Secondary malignant neoplasm of left lung; E78.00 Pure hypercholesterolemia, unspecified; R50.9 Fever, unspecified; C43.9 Malignant melanoma of skin, unspecified; I10 Essential (primary) hypertension; E78.5 Hyperlipidemia, unspecified; K21.9 Gastro-esophageal reflux disease without esophagitis; N40.0 Benign prostatic hyperplasia without lower urinary tract symptoms; Z79.82 Long term (current) use of aspirin; Z79.899 Other long term (current) drug therapy
CPT/HCPCS: 36415; 51701; 70450; 70553; 71010; 80053; 81001; 81003; 83036; 83605; 83690; 83735; 84100; 85025; 87040; 87086; 96361; 96365; 96375; 99284; 99285

== ENCOUNTER 2016-12-10 11:09 | Emergency (ER) | payer MEDICARE, OTHER ==
--- NOTE | 2016-12-10 11:56 | ED Physician Documentation ---
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 had MRI schedule for today already was in garage 930 AM came in and was noted to have focal L arm seizure and to be looking to the left and thought he was making a phone call but did not have the phone in his hand any more then had left sided leg weakness too which is now improving called [facility] and sent to ER denies fall denies PEREZ no recent fever cough NVD no POLST in MAC chart Review of Systems Constitutional: denies: Fever, Chills Throat: denies: Sore throat Cardiac: denies: Chest pain / pressure Respiratory: denies: Dyspnea GI: denies: Abdominal Pain, Nausea, Vomiting Neurologic: reports: Focal weakness, Seizure. denies: Numbness, Difficulty speaking, Syncope, Head injury Endocrine: denies: Easy bruising / bleeding Immunocompromised: denies: Immunocompromised PD PAST MEDICAL HISTORY - Past Medical History Past Medical History: Yes Cardiovascular: Hypertension, High cholesterol Respiratory: None Neuro: None, Seizure disorder Endocrine/Autoimmune: None GI: GERD : Benign prostate hypertrophy HEENT: None Psych: None Musculoskeletal: None Derm: None Other Past Medical History: stage 4 metastatic melanoma - Past Surgical History Past Surgical History: Yes General: EGD, Appendectomy, Colonoscopy HEENT: Tonsil/Adenoidectomy - Present Medications Home Medications: Ambulatory Orders Medication Instructions Recorded Confirmed Aspirin 81 mg PO QPM 11/02/12 12/10/16 Lisinopril/Hydrochlorothiazide 1 tab PO DAILY 11/02/12 12/10/16 [Lisinopril-Hctz 10-12.5 mg Tab] Omeprazole [PriLOSEC] 20 mg PO 1630 11/03/12 12/10/16 Amlodipine Besylate 5 mg PO DAILY 10/31/16 12/10/16 Atorvastatin [Lipitor] 10 mg PO QPM 10/31/16 12/10/16 Levetiracetam 500 mg PO BID 11/01/16 12/10/16 Dexamethasone 2 mg PO DAILY 12/10/16 12/10/16 Dexamethasone [Decadron] 4 mg PO BIDWM #28 tablet 12/10/16 Keytruda Every 3 Weeks 12/10/16 Multivit-Min/FA/Lycopen/Lutein 1 tab DAILY 12/10/16 12/10/16 [Centrum Silver Men Tablet] - Allergies Allergies/Adverse Reactions: Allergies Allergy/AdvReac Type Severity Reaction Status Date / Time No Known Drug Allergies Allergy Verified 11/02/12 21:05 - Social History Does the pt smoke?: No Smoking Status: Never smoker Does the pt drink ETOH?: Yes Does the pt have substance abuse?: No - Immunizations Immunizations are current?: Yes - POLST Patient has POLST: Yes POLST Status: Full Code PD ED PE NORMAL - Vitals Vital signs reviewed: Yes - General General: Alert and oriented X 3 - HEENT HEENT: PERRL, Other (mild L gaze deviation) - Neck Neck: Supple, no meningeal sign - Cardiac Cardiac: RRR - Respiratory Respiratory: No respiratory distress, Clear bilaterally - Abdomen Abdomen: Soft, Non tender - Neuro Neuro: Alert and oriented X 3. No: precision instrument maker 2-12 intact (L gaze deviation), No motor deficit (LUE weak, can now move LLE no numbness) Results - Vitals Vitals: Vital Signs - 24 hr 12/10/16 12/10/16 12/10/16 11:10 12:18 13:42 Temperature 36.8 C 36.7 C Heart Rate 81 71 64 Respiratory 18 12 17 Rate Blood Pressure 144/79 H 120/71 108/64 O2 Saturation 93 94 99 12/10/16 12/10/16 13:45 15:02 Temperature Heart Rate 66 65 Respiratory 14 14 Rate Blood Pressure 110/65 112/77 O2 Saturation 94 96 Oxygen O2 Source Room air - Labs Labs: Laboratory Tests 12/10/16 12/10/16 11:47 11:47 WBC 9.8 RBC 4.29 L Hgb 13.3 L Hct 37.9 L MCV 88.4 MCH 31.1 H MCHC 35.2 RDW 16.1 H Plt Count 121 L MPV 7.0 L Neut # Not Reportable Lymph # Not Reportable [place] # Not Reportable Eos # Not Reportable Baso # Not Reportable Absolute Nucleated RBC Not Reportable Total Counted 100 Band Neuts % (Manual) 4 Reactive Lymphs % (Man) 2 Metamyelocytes % 1 H Myelocytes % 2 H Neutrophils # (Manual) 8.5 H Lymphocytes # (Manual) 0.6 L Monocytes # (Manual) 0.4 Nucleated RBCs Not Reportable Differential Comment MANUAL DIFFERENTIAL Sodium 136 Potassium 3.9 Chloride 100 L Carbon Dioxide 29 Anion Gap 7.0 BUN 38 H Creatinine 0.7 Estimated GFR (MDRD) 109 Glucose 122 H Calcium 8.3 L - Rads (name of study) CTH Radiology: See rad report (lesions R parietal lobe inc in size from October with surrounding edema but no bleed and no shift) PD MEDICAL DECISION MAKING - ED course ED course: inc size R parietal lesions with edema - will give steroids speak with onc and likely dc with seizure precautions Departure - Departure Disposition: 01 Home, Self Care Clinical Impression: Focal seizure, Brain metastases Condition: Fair Follow-Up: Mikie Cheung MD [Primary Care Provider] - Addy Coronado MD [Provider Admit Priv/Credential] - Prescriptions: Dexamethasone [Decadron] 4 mg PO BIDWM #28 tablet Comments: The MRI showed the mass in the right brain is a little bigger and there is inflammation around it And the xray again showed cancer in the lungs I spoke to your oncologist - please increase the decadron to 8 mg per day again and continue the kera No driving, swimming, ladders etc Follow up with oncology as planned - he can write for more decadron prescriptions as needed Return if worse
[2016-12-10 11:58] LABS: BASOPHILS % (AUTO) 0.4 %; HCT - HEMATOCRIT 37.9 % (42.0-52.0); HGB - HEMOGLOBIN 13.3 g/dL (14.0-18.0); LYMPHOCYTES % (AUTO) 4.9 %; MEAN CORPUSCULAR HEMOGLOBIN 31.1 pg (27.0-31.0); MEAN CORPUSCULAR HGB CONC 35.2 g/dL (32.0-36.0); MEAN CORPUSCULAR VOLUME 88.4 fL (80.0-94.0); MONOCYTES % (AUTO) 4.5 %; NEUTROPHILS % (AUTO) 90.2 %; RED BLOOD COUNT 4.29 10^6/uL (4.70-6.10); RED CELL DISTRIBUTION WIDTH 16.1 % (12.0-15.0); UNCORRECTED WHITE BLOOD COUNT 9.8 x10^3/uL; WHITE BLOOD COUNT 9.8 x10^3/uL (4.8-10.8)
--- NOTE | 2016-12-10 11:59 | CT Report ---
EXAM: CT HEAD EXAM DATE: 12/10/2016 11:37 AM. CLINICAL HISTORY: Brain mets, focal LUE seizure, L weak.gaze. History metastatic melanoma. COMPARISON: CT head 11/01/2016, MRI brain 09/07/2016 TECHNIQUE: Multiaxial CT images were obtained from the foramen magnum to the vertex. IV contrast: Non e. Reformats: Coronal. In accordance with CT protocol optimization, one or more of the following dose reduction techniques w ere utilized for this exam: automated exposure control, adjustment of mA and/or KV based on patient s ize, or use of iterative reconstructive technique. FINDINGS: Parenchyma: The patient's known right parietal complex cystic/solid mass, consistent with metastatic melanoma, with a lateral hypodense component and a medial hyperdense component appears overall simila r in size to the prior study, measuring 34 x 29 x 38 mm (AP by transverse by craniocaudal) (series 3 image 24, series 6 image 24), previously 34 x 32 x 38 mm. Slightly more laterally there is ill-define d hyperdense lesion (series 3 image 22) measuring 14 mm in transverse plane, previously 2 mm, as well as craniocaudally measuring 13 mm (series 6 image 23), previously 7 mm, concerning for progression o f metastatic disease. No CT evidence of acute intracranial hemorrhage, midline shift, hydrocephalus, or acute infarct. No definite new lesions on this noncontrast study.. Extraaxial Spaces: Normal for age. No subdural or epidural collections identified. Ventricles: Normal in size and position. Sinuses: Imaged paranasal sinuses, orbits, and mastoids show no significant abnormality. Bones: Status post prior parietal right frontal jazzmine hole craniotomy. Other: None. IMPRESSION: 1. The patient's known right parietal complex cystic/solid mass, consistent with metastatic melanoma, appears overall similar in size to the prior study, measuring 34 x 29 x 38 mm (AP by transverse by c raniocaudal) (series 3 image 24, series 6 image 24), previously 34 x 32 x 38 mm. 2. Slightly more laterally from the larger lesion described above, there is ill-defined hyperdense le mandy (series 3 image 22) measuring 14 mm in transverse plane, previously 2 mm, as well as craniocauda lly measuring 13 mm (series 6 image 23), previously 7 mm, concerning for progression of metastatic di sease. Given the location of this lesion, this could represent etiology for the patient's focal left upper extremity seizure. If clinically indicated, MRI of the brain with and without contrast appear o btained to further evaluate disease progression. 3. No CT evidence of acute intracranial hemorrhage, midline shift, hydrocephalus, or acute infarct. 4. No definite new lesions on this noncontrast study, although a contrast-enhanced MRI of the brain w ould be more sensitive examination. [facility] Referring Provider Line: [phone] SITE ID: [id number]
[2016-12-10] MEDS ORDERED: LORazepam 2 MG/ML SYRINGE IVP STA (12:02)
[2016-12-10 12:08] LABS: CALCIUM 8.3 mg/dL (8.5-10.3); CREATININE 0.7 mg/dL (0.6-1.2); POTASSIUM 3.9 mmol/L (3.5-5.0)
[2016-12-10] MEDS ORDERED: LORazepam 2 MG/ML SYRINGE ONE (12:11)
[2016-12-10 12:29] LABS: BAND NEUTROPHILS % (MANUAL) 4 %; LYMPHOCYTES % (MANUAL) 4 %; NEUTROPHILS % (MANUAL) 83 %; TOTAL CELLS COUNTED 100
[2016-12-10 12:30] LABS: NP AUTO DIFFERENTIAL? YES; NP MAN DIFFERENTIAL? NO
[2016-12-10] MEDS ORDERED: GADOBUTROL 7.5 MMOL/7.5 ML VIAL IVP ONE (13:28)
--- NOTE | 2016-12-10 13:59 | MRI Preliminary Report ---
Exam: MRI Brain W/WO IMPRESSION: 1. Again seen are 4 intrinsic T1 signal hyperintense lesions within the brain parenchyma with questio nable superimposed enhancement, as detailed above. Lesions within the right parietal lobe appear to h ave increased in size since 11/02/2016 concerning for disease progression. There is surrounding edema producing local mass effect but no midline shift. 2. No definite new mass or masslike enhancement seen. 3. No acute infarct or new acute intracranial hemorrhage. 4. Mild matter changes appear similar to 11/02/2016 and may represent sequela of chronic small vessel ischemic disease. [facility] SITE ID: [id number]
--- NOTE | 2016-12-10 14:02 | MRI Report ---
EXAM: MRI BRAIN WITHOUT AND WITH CONTRAST EXAM DATE: 12/10/2016 01:29 PM. CLINICAL HISTORY: 76-year-old with known metastatic brain cancer presenting with seizure COMPARISON: MR brain 11/02/2016. TECHNIQUE: Multiplanar, multisequence T1-weighted and fluid-sensitive MR sequences of the brain were performed. Sequences optimized for routine evaluation. Other: None. Without and with IV Contrast: 7.5 cc GADAVIST. FINDINGS: Brain Volume: Normal for age. Parenchyma/Dura: Again demonstrated are several intracranial metastatic lesions includin. Right medial precuneus region measuring up to 0.2 cm (series 1102, image 43) that is stable in siz e from 11/02/2016. The lesion demonstrates intrinsic T1 signal hyperintensity with questionable superi mposed enhancement. There is trace surrounding edema with no significant mass effect. 2. Left temporal parietal region measuring 0.3 cm (series 1102, image 54) is stable in size from 11/02. The lesion demonstrates intrinsic T1 signal hyperintensity with questionable superimposed enha ncement. There is minimal edema with no significant local mass effect. 3. Right lateral parietal lobe measuring 1.2 x 1.1 x 1.1 cm (cc by TRV by AP) that appears increased in size from 11/02/2016 at which time it measured 1.0 x 1.0 x 0.9 cm (cc by TRV by AP). The lesion dem onstrates intrinsic T1 signal hyperintensity with questionable superimposed hyperenhancement. There i s associated susceptibility artifact. There is [id number] surrounding edema with local mass eff ect but no midline shift. Abnormal T1 signal hyperintensity extends to the cortical surface similar t o prior study. 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 4. Medial right parietal lobe solid and cystic mass lesion that measures 4.2 x 3.2 x 3.7 cm (cc by a by AP) that is increased in size since 11/02/2016 at which time it measured 3.7 x 3.1 x 3.6 cm cc by T RV by AP). The lesion demonstrates intrinsic T1 signal hyperintensity with questionable superimposed hyperenhancement. There is associated susceptibility artifact. There is moderate surrounding edema wi th local mass effect as well as effacement and anterior/inferior displacement of the atria and trigon e of the right lateral ventricle. No evidence of midline shift. Findings suggest intracranial metasta tic disease with intratumoral hemorrhage. No convincing evidence of new intracranial mass or abnormal intracranial enhancement. There is additional mild bilateral areas of T2/FLAIR signal hyperintensity seen that appear similar i n size and distribution to 11/02/2016. No definite new acute intracranial hemorrhage seen. There is an area of DWI signal hyperintensity seen along the cortical mantle of the right frontal lob e (series 505, image 152) with no corresponding ADC signal hypointensity. No other signal abnormaliti es seen corresponding to area of DWI signal hyperintensity suggesting this may represent artifact. No definite areas of restricted diffusion to suggest acute infarct. No definite new areas of abnormal p arenchymal susceptibility artifact. Pituitary: Unremarkable. Ventricles/Cisterns: Postsurgical changes of prior right parietal jazzmine hole with underlying dural thi ckening and enhancement that appear similar to prior study and may represent postsurgical changes. No new abnormal extra-axial fluid collection/mass seen. Ventricles and sulci are prominent but appropriate for the extent of volume loss. Ventricular size co nfiguration appear similar to prior study. Cisterns are patent. Fluid is seen within Meckel's caves. Visualized internal auditory canals appear clear. Sinuses: The visualized paranasal sinuses, mastoid air cells, and middle ear cavities are clear. Orbits: Changes of bilateral lens replacement. Vasculature: Visualized intracranial flow voids are maintained. Dural sinuses are patent. Bones: Post surgical changes of prior right parietal jazzmine hole. Outside of the jazzmine hole no definite abnormal calvarial enhancement seen. Other: None. IMPRESSION: 1. Again seen are 4 intrinsic T1 signal hyperintense lesions within the brain parenchyma with questio nable superimposed enhancement, as detailed above. Lesions within the right parietal lobe appear to h ave increased in size since 11/02/2016 concerning for disease progression. There is surrounding edema producing local mass effect but no midline shift. 2. No definite new mass or masslike enhancement seen. 3. No acute infarct or new acute intracranial hemorrhage. 4. Mild matter changes appear similar to 11/02/2016 and may represent sequela of chronic small vessel ischemic disease. [facility] Referring Provider Line: [phone] SITE ID: [id number]
--- NOTE | 2016-12-10 15:48 | XRAY Preliminary Report ---
Exam: XR Chest 2 View PA/LAT IMPRESSION: 1. There is cardiomegaly. 2. There are indistinct rounded opacities within the lungs. These likely represent metastases. 3. There is no clear evidence of acute infiltrate. 4. No pneumothorax. [facility] SITE ID: [id number]
--- NOTE | 2016-12-10 15:50 | XRAY Report ---
CHEST RADIOGRAPHY EXAM DATE: 12/10/2016 03:05 PM. CLINICAL HISTORY: Seizure. COMPARISON: 11/01/2016. TECHNIQUE: 2 views. FINDINGS: Lungs/Pleura: Lung lines are low. There are indistinct rounded lung masses. No clear evidence of acut e infiltrate or large effusion. No pneumothorax. Mediastinum: There is cardiomegaly. Other: No acute bony abnormalities are seen. IMPRESSION: 1. There is cardiomegaly. 2. There are indistinct rounded opacities within the lungs. These likely represent metastases. 3. There is no clear evidence of acute infiltrate. 4. No pneumothorax. [facility] Referring Provider Line: [phone] SITE ID: [id number]
[2016-12-10] MEDS ORDERED: DEXAMETHASONE 10 MG/ML VIAL PO STA (15:55)
[2016-12-10] MEDS ORDERED: DEXAMETHASONE 10 MG/ML VIAL ONE (16:01)
[2016-12-10 16:23] VITALS: BP 116/72
== END 2016-12-10 16:23 | disposition home or self-care (01) ==
LOC: ED 11:09
DX: G40.89 Other seizures (principal); C43.9 Malignant melanoma of skin, unspecified; C79.31 Secondary malignant neoplasm of brain; I10 Essential (primary) hypertension; E78.00 Pure hypercholesterolemia, unspecified; K21.9 Gastro-esophageal reflux disease without esophagitis; N40.0 Benign prostatic hyperplasia without lower urinary tract symptoms
CPT/HCPCS: 36415; 70450; 70553; 71020; 80048; 85025; 96374; 96375; 99284; A9585; J2060